=== PATIENT | female | born 1960 | race African-American/Black ===

== ENCOUNTER 2016-09-15 02:34 | Emergency (ER) | payer MEDICAID, OTHER ==
[~2016-09-15] VITALS: Ht 162.6 cm; Wt 68.0 kg
[2016-09-15] MEDS ORDERED: ASPIRIN 81MG TABLET PO ONE (03:30)
[2016-09-15] MEDS ORDERED: NITROGLYCERIN 0.4MG TABLET SL SL PRN (03:30)
[2016-09-15 03:34] LABS: EOSINOPHILS % 3.5 % (0.0-5.0); HEMATOCRIT. 34.4 % (36.0-48.0); LYMPHOCYTES % 27.2 % (20.0-50.0); MEAN CORPUSCULAR HEMOGLOBIN 32.2 pg (28.0-32.0); MEAN CORPUSCULAR VOLUME 92.4 fL (81.0-99.0); MEAN PLATELET VOLUME 9.1 fl (7.4-10.4); MONOCYTES % 10.4 % (2.0-8.0); NEUTROPHILS % 57.9 % (40.0-76.0); PLATELET 180 x1000/uL (130-400); RED BLOOD CELL COUNT 3.72 mill/uL (4.2-5.4); RED CELL DISTRIBUTION WIDTH 13.3 % (11.6-14.6)
[2016-09-15 03:43] LABS: PROTHROMBIN TIME 10.4 sec
[2016-09-15 03:51] LABS: CARBON DIOXIDE 29 mEq/L (21-32); CHLORIDE 101 mEq/L (98-107); ETHANOL BLOOD < 10 mg/dL; TROPONIN I < 0.02 ng/mL (0.00-0.04)
[2016-09-15 06:28] VITALS: BP 148/86
== END 2016-09-15 07:48 | disposition left against medical advice (07) ==
LOC: ER 02:46
DX: I20.0 Unstable angina (principal); I69.951 Hemiplegia and hemiparesis following unspecified cerebrovascular disease affecting right dominant side; F17.210 Nicotine dependence, cigarettes, uncomplicated; Z88.0 Allergy status to penicillin
CPT/HCPCS: 36415; 71010; 80053; 83880; 84484; 85025; 85610; 93005; 99285; G0482